=== PATIENT | female | born 1955 | race Caucasian/White ===

== ENCOUNTER 2018-01-03 07:42 | Emergency (ER) | payer OTHER, MEDICAID, SELFPAY ==
[2018-01-03 08:01] VITALS: BP 138/96; PULSE 68; RESP 18; TEMP 36.3; O2SAT 92; BMI 53.0
--- NOTE | 2018-01-03 08:12 | DI.RAD.S_ITS ---
PROCEDURE: XR KUB INDICATIONS: abd pain, s/p colonoscopy - free air? TECHNIQUE: One view of the abdomen acquired. COMPARISON: None. FINDINGS: Surgical changes and devices: None. Bowel: Bowel gas pattern is normal. No free air. Soft tissues: No suspicious abdominal calcifications. Faint area calcification is noted overlying the left kidney. Visualized solid organ contours appear normal in size. Bones: No suspicious bony lesions. IMPRESSION: Faint calcification overlying the left kidney suggestive of nephrolithiasis. Dictated by: Emelia Bhatt M.D. on 01/03/2018 at 8:47 Approved by: Emelia Bhatt M.D. on 01/03/2018 at 8:48
--- NOTE | 2018-01-03 08:12 | DI.RAD.S_ITS ---
PROCEDURE: XR CHEST 2V INDICATIONS: chest pain TECHNIQUE: 2 views of the chest were acquired. COMPARISON: [facility], CR, XR KUB, 01/03/2018, 8:08. FINDINGS: Surgical changes and devices: None. Lungs and pleura: No pleural effusions or pneumothorax. Lungs are clear. Mediastinum: Mediastinal contours are normal. Heart size is normal. Bones and chest wall: No suspicious bony abnormalities. Soft tissues appear unremarkable. IMPRESSION: No acute pulmonary process. Dictated by: Emelia Bhatt M.D. on 01/03/2018 at 8:47 Approved by: Emelia Bhatt M.D. on 01/03/2018 at 8:47
[2018-01-03] MEDS: ONDANSETRON 4 MG/2 ML INJ 8 MG IV (08:37)
--- NOTE | 2018-01-03 09:02 | PC.NURSE ---
C/O nausea. Meds per MD order
[2018-01-03 09:15] LABS: Add Manual Diff / Slide Review NO; Basophils Percent Auto 0.4 % (0-2); Eosinophils Percent Auto 0.5 % (2-4); Hematocrit 42.8 % (36-46); Hemoglobin 14.4 g/dL (12.0-16.0); Lymphocytes Percent Auto 18.9 % (25-40); Mean Corpuscular HGB Conc 33.7 % (30-36); Mean Corpuscular Hemoglobin 31.8 PG (26-34); Mean Corpuscular Volume 94.4 fL (80-100); Monocytes Percent Auto 6.2 % (3-14); Neutrophils Absolute Auto 4600 /uL (3000-5900); Platelet Count 210 X10^3/uL (150-400); Red Blood Cell Count 4.53 X10^6/uL (4.0-5.2); Red Cell Distribution Width 13.6 % (11.6-14.8); White Blood Cell Count 6.2 X10^3/uL (4.5-11.0)
[2018-01-03 09:21] LABS: D Dimer 318 ng/mL (<230)
[2018-01-03 09:22] LABS: Alanine Aminotransferase 30 IU/L (9-52); Albumin 4.3 g/dL (3.5-5.0); Albumin Globulin Ratio 1.3 (1.0-2.8); Alkaline Phosphatase 65 U/L (38-126); Aspartate Aminotransferase 27 IU/L (14-36); BUN Creatinine Ratio 22.9 (6-22); Bilirubin Total 0.5 mg/dL (0.2-1.3); Blood Urea Nitrogen 16 mg/dL (7-17); Calcium 9.1 mg/dL (8.4-10.2); Carbon Dioxide 27 mmol/L (22-32); Chloride 103 mmol/L (98-107); Estimated Glomerular Filt Rate > 60.0 mL/min (>60); Globulin 3.3 g/dL (1.7-4.1); Glucose 121 mg/dL (80-110); HEMOLYSIS 38 (0-50); Lactate (Lactic Acid) 0.9 mmol/L (0.7-2.1); Lipase 83 U/L (23-300); Potassium 4.4 mmol/L (3.4-5.1); Sodium 140 mmol/L (137-145); Total Protein 7.6 g/dL (6.3-8.2)
--- NOTE | 2018-01-03 09:22 | DI.CT.S_ITS ---
PROCEDURE: CT ANGIO CHEST PE PROTOCOL INDICATIONS: sob w/ elevated d-dimer TECHNIQUE: After the administration of intravenous contrast, 2 mm thick sections acquired from the pulmonary apices to the posterior costophrenic angles. 3-dimensional maximum intensity projection (MIP) coronal and sagittal reformats were then acquired through the thorax. For radiation dose reduction, the following was used: automated exposure control, adjustment of mA and/or kV according to patient size. COMPARISON: None. FINDINGS: Image quality: Distal branches are suboptimally evaluated. Pulmonary arteries: Pulmonary arteries are normal in size, and demonstrate no intraluminal filling defects to suggest central pulmonary embolism. Segmental branches are suboptimally evaluated. Lungs and pleura: Lungs are clear. No pleural effusions or pneumothorax. Central and peripheral airways are patent. Mediastinum: Heart size is normal, without pericardial effusion. No mediastinal or hilar adenopathy. Thoracic aorta is normal in caliber and enhancement. Esophagus is normal in caliber, with hiatal hernia. Bones and chest wall: No suspicious bony lesions. Ribs and thoracic spine appear intact throughout. Thyroid gland is unremarkable. No axillary or supraclavicular adenopathy. Abdomen: Nonobstructing left renal calculus. Otherwise, visualized upper abdominal solid organs appear normal in the early arterial phase of enhancement. IMPRESSION: 1. No central pulmonary embolism. Segmental branches are suboptimally evaluated and underlying emboli cannot be excluded. 2. No effusions or consolidations. Dictated by: Emelia Bhatt M.D. on 01/03/2018 at 10:38 Approved by: Emelia Bhatt M.D. on 01/03/2018 at 10:50
[2018-01-03 09:38] LABS: Troponin I < 0.012 ng/mL (0.01-0.034)
[2018-01-03 09:39] VITALS: BP 106/59; PULSE 56; RESP 20; O2SAT 92
[2018-01-03 10:40] VITALS: BP 113/55; PULSE 71; RESP 16; O2SAT 95
[2018-01-03 11:10] VITALS: BP 111/63; PULSE 73; RESP 20; O2SAT 95
--- NOTE | 2018-01-03 11:34 | DI.US.S_ITS ---
PROCEDURE: US PERIPH VENOUS LOW EXTREM BI INDICATIONS: SOB TECHNIQUE: Real-time imaging, as well as color and pulse Doppler interrogation, were performed of the deep veins of both legs from the inguinal ligament to the popliteal fossa. COMPARISON: None. FINDINGS: The deep veins are normally compressible, and free of intraluminal thrombus. Color and pulse Doppler demonstrate normal phasic intravascular flow. There is normal augmentation response to distal compression maneuver. IMPRESSION: No visualized deep venous thrombosis. Dictated by: Emelia Bhatt M.D. on 01/03/2018 at 13:11 Approved by: Emelia Bhatt M.D. on 01/03/2018 at 13:12
--- NOTE | 2018-01-03 12:45 | ED_ITS ---
HPI - SOB/Dyspnea General Chief Complaint: Shortness of Breath/Dyspnea Stated Complaint: SHAKY, PAIN FROM NECK TO SHOULDER History of Present Illness HPI 62-year-old female presents for evaluation of consolation symptoms including mild shortness of breath worsened with deep inspiration, mild left shoulder discomfort, intermittent (presently resolved) mild ringing of the ears and shakiness that has been present shortly after a colonoscopy 3 days prior to arrival. Patient denies chest pain, fevers, chills, CAD, history of DVT or PE.. M/S/F/SocHx notable for: SANAM; remainder reviewed with patient and in chart. ROS: Negative constitutional, eye, cardiovascular, pulmonary, GI, , MSK, skin , neurologic, psychiatric, endocrine unless noted in the HPI. Exam Gen: Pleasant, non-toxic appearing, resting comfortably. HEENT: NC, AT, PEERL, EOMI. Resp: Clear to auscultation bilaterally, normal work of breathing, no accessory muscle usage. Card: Regular rate and rhythm with no murmurs, rubs, or gallops, extremities warm and well perfused. GI: Non-tender to palpation throughout all quadrants, no focal tenderness at McBurney's point, negative Plascencia's sign, non-distended, no rebound or guarding. Nontender umbilical reducible hernia, no overlying erythema. : No suprapubic tenderness to palpation. MSK: No visible deformities, strength and tone without visually appreciable deficit. Skin: Normal color with no visible lesions. Neuro: Gen AO x 3, no facial asymmetry, no gaze preference, no slurring of speech. Pupils equal and reactive, EOMI, no facial asymmetry, no nystagmus, phonation intact, SCM 5/5 bilaterally. Cerebellar: bilateral upper extremities without dysmetria. Psych: Mood and affect appropriate. Labs / Imaging: WBC 6.2, Hb 14.4, Na 140, K 4.4, total bilirubin 0.5, AST 27, ALT 30, ALP 65, lipase 83, troponin <0.012, d-dimer 318. EKG: SR 67 bpm, no ST segment elevations or depressions, no LBBB. CXR: no acute cardiopulmonary process. KUB: pain calcifications overlying the left kidney suggestive of nephrolithiasis. CTA chest: no central pulmonary embolus. Segmental branches are suboptimally evaluated and underlying emboli cannot be excluded. No effusions or consolidations. US BLE: no DVT. Radiologist read pending. MDM Previous chart, nursing note, labs, imaging, and vitals reviewed. A: 62-year-old female presents for evaluation of consolation symptoms including mild shortness of breath worsened with deep inspiration, mild left shoulder discomfort, intermittent (presently resolved) mild ringing of the ears and shakiness that has been present shortly after a colonoscopy 3 days prior to arrival. Evaluation: * pulmonary - no pneumonia, PE, pneumothorax. * cardiac - doubt ACS given a nonischemic EKG and a negative troponin. No evidence of myocarditis, pericarditis, unstable angina (based on history and overall symptom constellation). * vascular - mildly elevated d-dimer, CTA without central pulmonary embolus, segmental branches were suboptimally evaluated, as the patient is without hypoxemia, tachycardia, or hypotension - doubt but cannot fully exclude PE. Bilateral lower extremity Doppler ultrasound obtain, no evidence of DVT. Consider patient to be low risk after above evaluation. Patient instructed to follow up with PCP. * intrabdominal - no free air, abdominal exam benign, labs within clinically acceptable limits. Doubt acute intra-abdominal process. Disposition: discharge with PCP follow-up recommended. Impression: post colonoscopy discomfort (please reference below for remainder of encounter information) Related Data Home Medications Medication Instructions Recorded Confirmed No Known Home Medications 01/03/18 01/03/18 Allergies Allergy/AdvReac Type Severity Reaction Status Date / Time No Known Drug Allergies Allergy Verified 01/03/18 08:01 [facility] Social History Smoking Status: Never smoker Exam Initial Vital Signs Initial Vital Signs: Vital Signs Temperature 97.3 F L 01/03/18 08:01 Pulse Rate 68 01/03/18 08:01 Respiratory Rate 18 01/03/18 08:01 Blood Pressure 138/96 H 01/03/18 08:01 Pulse Oximetry 92 01/03/18 08:01 Course Orders Ordered: ED Orders 01/03/18 08:12 XR KUB Stat XR chest 2V Stat 01/03/18 08:28 Complete Blood Count AUTO DIFF Stat Comprehensive Metabolic Panel Stat D Dimer Stat Lactate (Lactic Acid) Stat Lipase Stat Troponin I Stat 01/03/18 09:22 CT angio chest PE protocol Stat 01/03/18 11:34 US periph venous low extrem bi Stat Ondansetron HCl (Zofran) 4 mg IV Q2HR PRN PRN Reason: Nausea And Vomiting Discontinued Medications Ondansetron HCl 8 mg/ Sodium (Chloride) 54 mls @ 216 mls/hr IV NOW ONE Stop: 01/03/18 08:30 Last Admin: 01/03/18 09:01 Dose: Ondansetron HCl (Zofran) 8 mg IV NOW ONE Stop: 01/03/18 08:36 Last Admin: 01/03/18 08:37 Dose: 4 mg Vital Signs - 8 hr 01/03/18 08:01 01/03/18 09:39 01/03/18 10:40 Temperature 97.3 F L Pulse Rate 68 56 L 71 Respiratory Rate 18 20 16 Blood Pressure 138/96 H Blood Pressure [Right Arm] 106/59 L 113/55 L Pulse Oximetry 92 92 95 01/03/18 11:10 Temperature Pulse Rate 73 Respiratory Rate 20 Blood Pressure Blood Pressure [Right Arm] 111/63 Pulse Oximetry 95 MDM - SOB/Dyspnea Lab Data Result diagrams: 01/03/18 08:28 01/03/18 08:28 Lab Results 01/03/18 01/03/18 01/03/18 Range/Units 08:28 08:28 08:28 WBC 6.2 (4.5-11.0) X10^3/uL RBC 4.53 (4.0-5.2) X10^6/uL Hgb 14.4 (12.0-16.0) g/dL Hct 42.8 (36-46) % MCV 94.4 (80-100) fL MCH 31.8 (26-34) PG MCHC 33.7 (30-36) % RDW 13.6 (11.6-14.8) % Plt Count 210 (150-400) X10^3/uL Neut % (Auto) 74.0 (50-75) % Lymph % (Auto) 18.9 L (25-40) % [place] % (Auto) 6.2 (3-14) % Eos % (Auto) 0.5 L (2-4) % Baso % (Auto) 0.4 (0-2) % Neut # (Auto) 4600 (1878-1949) /uL D-Dimer 318 H (<230) ng/mL Sodium 140 (137-145) mmol/L Potassium 4.4 (3.4-5.1) mmol/L Chloride 103 (98-107) mmol/L Carbon Dioxide 27 (22-32) mmol/L BUN 16 (7-17) mg/dL Creatinine 0.70 (0.52-1.04) mg/dL Estimated GFR > 60.0 (>60) mL/min BUN/Creatinine Ratio 22.9 H (6-22) Glucose 121 H (80-110) mg/dL Lactate (0.7-2.1) mmol/L Calcium 9.1 (8.4-10.2) mg/dL Total Bilirubin 0.5 (0.2-1.3) mg/dL AST 27 (14-36) IU/L ALT 30 (9-52) IU/L Alkaline Phosphatase 65 (38-126) U/L Troponin I < 0.012 (0.01-0.034) ng/mL Total Protein 7.6 (6.3-8.2) g/dL Albumin 4.3 (3.5-5.0) g/dL Globulin 3.3 (1.7-4.1) g/dL Albumin/Globulin Ratio 1.3 (1.0-2.8) Lipase 83 (23-300) U/L 01/03/18 Range/Units 08:28 WBC (4.5-11.0) X10^3/uL RBC (4.0-5.2) X10^6/uL Hgb (12.0-16.0) g/dL Hct (36-46) % MCV (80-100) fL MCH (26-34) PG MCHC (30-36) % RDW (11.6-14.8) % Plt Count (150-400) X10^3/uL Neut % (Auto) (50-75) % Lymph % (Auto) (25-40) % [place] % (Auto) (3-14) % Eos % (Auto) (2-4) % Baso % (Auto) (0-2) % Neut # (Auto) (3165-2260) /uL D-Dimer (<230) ng/mL Sodium (137-145) mmol/L Potassium (3.4-5.1) mmol/L Chloride (98-107) mmol/L Carbon Dioxide (22-32) mmol/L BUN (7-17) mg/dL Creatinine (0.52-1.04) mg/dL Estimated GFR (>60) mL/min BUN/Creatinine Ratio (6-22) Glucose (80-110) mg/dL Lactate 0.9 (0.7-2.1) mmol/L Calcium (8.4-10.2) mg/dL Total Bilirubin (0.2-1.3) mg/dL AST (14-36) IU/L ALT (9-52) IU/L Alkaline Phosphatase (38-126) U/L Troponin I (0.01-0.034) ng/mL Total Protein (6.3-8.2) g/dL Albumin (3.5-5.0) g/dL Globulin (1.7-4.1) g/dL Albumin/Globulin Ratio (1.0-2.8) Lipase (23-300) U/L Discharge Plan Departure Prescriptions: No Action No Known Home Medications RF: 0
[2018-01-03 12:56] VITALS: BP 141/63; PULSE 67; RESP 20; O2SAT 95
[2018-01-03 12:57] VITALS: BP 141/63; PULSE 67; RESP 20; O2SAT 95
== END 2018-01-03 12:58 | disposition home or self-care (01) ==
PROVIDERS: Emergency Provider Emergency Medicine
DX: G89.18 Other acute postprocedural pain (principal)
CPT/HCPCS: 36591; 71046; 71275; 74018; 80053; 83605; 83690; 84484; 85025; 85379; 93005; 93970; 96374; 99283; 99285; J2405